=== PATIENT | male | born 1940 | race Caucasian/White ===

== ENCOUNTER 2024-11-26 08:58 | Outpatient (REF) | payer MEDICARE, SELFPAY ==
[2024-11-26 10:57] LABS: Vitamin B12 744 pg/mL (200-900)
== END 2024-11-26 08:59 | disposition home or self-care (01) ==
LOC: HO.LAB 08:58
PROVIDERS: PCP Family Medicine; Visit Provider Psychiatry & Neurology Neurology
DX: F03.90 Unspecified dementia, unspecified severity, without behavioral disturbance, psychotic disturbance, mood disturbance, and anxiety (principal)
CPT/HCPCS: 36415; 82607

== ENCOUNTER 2025-03-29 16:14 | Outpatient (REF) | payer MEDICARE, SELFPAY ==
--- NOTE | ~2025-03-29 | CT_ITS ---
EXAMINATION: CT HEAD WITHOUT CONTRAST CLINICAL INFORMATION: R26.9 - Unspecified abnormalities of gait and mobility COMPARISON: None available. TECHNIQUE: Contiguous axial imaging was performed from the skull base to vertex without intravenous administration of contrast. This CT examination was performed using dose optimization techniques as appropriate, variously including the following: *Automated exposure control *Adjustment of mA and/or kV according to patient size (this includes techniques or standardized protocols for targeted exams where dose is matched to indication/reason for exam; i.e. extremities or head) *Use of iterative reconstruction technique DLP: 807 mGY*cm FINDINGS: There is no acute ischemic change. There are periventricular and white matter hypodensities in the left greater than right hemisphere. There is no intracranial hemorrhage. There is no mass-effect or midline shift. Basal cisterns and ventricles are within normal limits for age/cerebral volume. Orbits are symmetrical and unremarkable. Paranasal sinuses and mastoid air cells are pneumatized. There are no bony abnormalities. CT/CT head/brain wo IV con IMPRESSION: No acute intracranial abnormality. Chronic microvascular changes. Electronically signed by: Eliazar Alarcon MD 03/29/2025 05:29 PM EDT RP
== END 2025-03-29 16:15 | disposition home or self-care (01) ==
LOC: HO.CT 16:14
PROVIDERS: Visit Provider Psychiatry & Neurology Neurology
DX: R26.9 Unspecified abnormalities of gait and mobility (principal)
CPT/HCPCS: 70450

== ENCOUNTER → 2025-03-29 16:16 | Outpatient (BNV) | payer MEDICARE, SELFPAY | PROVIDERS: Visit Provider Radiology Diagnostic Radiology | DX: R26.9 Unspecified abnormalities of gait and mobility (principal); I25.85 Chronic coronary microvascular dysfunction | CPT/HCPCS: 70450 ==